=== PATIENT | male | born 1975 ===

== ENCOUNTER 2019-11-14 09:21 | Emergency (ER) | payer SELFPAY ==
[~2019-11-14] VITALS: Ht 157.5 cm; Wt 81.8 kg
[2019-11-14 09:45] VITALS: TEMP 97.8
[2019-11-14 10:28] LABS: BASO % 0.4 % (0.0-2.0); EOS # 0.1 (0.0-0.7); EOS % 0.7 % (0-4.0); GRAN % 77.3 % (42.2-75.2); HEMATOCRIT 46.7 % (37.0-47.0); HEMOGLOBIN 15.3 g/dl (12.5-16.0); LYMPH # 1.5 (1.2-3.4); LYMPH % 14.3 % (20.0-51.0); MEAN CELL VOLUME 90 fl (80.0-100.0); MEAN CORPUSCULAR HEMOGLOBIN 29 pg (27.0-31.0); MEAN CORPUSCULAR HGB CONC 33 g/dl (33.0-37.0); MEAN PLATELET VOLUME 9.9 fl (7.4-10.4); MONO # 0.7 (0.1-0.6); MONO % 6.5 % (1.7-9.3); PLATELET COUNT 277 K/mm3 (130-400); REDCELL DISTRIBUTION WIDTH-CV 12.9 % (11.5-14.5)
[2019-11-14 10:30] LABS: PROTHROMBIN TIME 11.4 SECONDS (9.7-12.8)
[2019-11-14 10:32] LABS: PARTIAL THROMBOPLASTIN TIME 28.6 SECONDS (26.0-37.0)
[2019-11-14 10:36] LABS: ALANINE AMINOTRANSFERASE 67 U/L (9-52); ALBUMIN 4.1 gm/dL (3.5-5.0); ALCOHOL(ethanol),MEDICAL < 10 mg/dL; ALKALINE PHOSPHATASE 172 U/L (50-136); ANION GAP 8 mmol/L (7-16); AST,SGOT 41 U/L (15-37); BILIRUBIN,TOTAL 0.6 mg/dL (0.0-1.0); BLOOD UREA NITROGEN 17 mg/dL (7-17); CALCIUM 8.7 mg/dL (8.4-10.2); CARBON DIOXIDE 26 mmol/L (22-30); CHLORIDE 107 mmol/L (98-107); CREATININE, serum 0.85 (0.52-1.25); GLUCOSE 98 mg/dL (74-106); LIPASE 59 U/L (23-300); SODIUM 141 mmol/L (137-145); TOTAL PROTEIN 7.1 gm/dL (6.4-8.2)
[2019-11-14] MEDS ORDERED: FLEXERIL 1010 MG/TAB PO (15:28)
[2019-11-14 16:24] VITALS: BP 136/96; PULSE 86
[2019-11-14] MEDS ORDERED: NORCO 325 MG-51 TAB PO (16:26)
== END 2019-11-14 16:30 | disposition home or self-care (01) ==
LOC: COL.ER 09:21 → EDSEX 09:22 → COL.ER 09:22
PROVIDERS: Emergency Medicine
DX: S01.01XA Laceration without foreign body of scalp, initial encounter (principal); S16.1XXA Strain of muscle, fascia and tendon at neck level, initial encounter; M25.511 Pain in right shoulder; M25.532 Pain in left wrist; R40.2412 Glasgow coma scale score 13-15, at arrival to emergency department; V49.9XXA Car occupant (driver) (passenger) injured in unspecified traffic accident, initial encounter
CPT/HCPCS: J2405; J3010; J7030; Q9967